=== PATIENT | male | born 1955 | race African-American/Black ===

== ENCOUNTER → 2020-11-07 | Outpatient (REF) | payer OTHER ==
[2020-11-07 21:56] LABS: APPEARANCE, URINE CLEAR (CLEAR); BACTERIA, URINE AUTO NEGATIVE (NEGATIVE); BILIRUBIN, URINE AUTO NEGATIVE (NEGATIVE); BLOOD, URINE BLOOD NEGATIVE (NEGATIVE); COLOR, URINE YELLOW (YELLOW); GLUCOSE, URINE (UA) AUTO 3+ mg/dL (NEGATIVE); KETONE, URINE AUTO NEGATIVE (NEGATIVE); LEUKOCYTE ESTERASE, URINE AUTO NEGATIVE (NEGATIVE); MUCUS, URINE SMALL (NEGATIVE); NITRITE, URINE AUTO NEGATIVE (NEGATIVE); PROTEIN, URINE AUTO NEGATIVE (NEGATIVE); RBC, URINE AUTO 1 /HPF (0-3); SQUAMOUS EPITHELIAL CELL UR AU 0 /HPF (0-6); WBC, URINE AUTO 0 /HPF (0-3)
== END ==
LOC: M LAB 21:30
PROVIDERS: ATTEND Physician Assistant Medical
DX: N39.0 Urinary tract infection, site not specified (principal)

== ENCOUNTER 2021-04-09 02:03 | Emergency (ER) | payer OTHER, MEDICAID ==
[~2021-04-09] VITALS: Ht 175.3 cm; Wt 66.2 kg
[2021-04-09] MEDS ORDERED: ASPI81CH33 PO (02:18)
[2021-04-09] MEDS ORDERED: PIOG1TAB37 PO (02:18)
[2021-04-09] MEDS ORDERED: LOSA50TA88 PO (02:18)
[2021-04-09] MEDS ORDERED: TRES1INJ2 SC (02:18)
[2021-04-09] MEDS ORDERED: OMEP-221 PO (02:18)
[2021-04-09] MEDS ORDERED: INSUH10VL SC (02:18)
[2021-04-09] MEDS ORDERED: GABA-283 PO (02:18)
[2021-04-09] MEDS ORDERED: ATOR1TAB21 PO (02:18)
[2021-04-09] MEDS ORDERED: methocarbamoL 750 MG TAB PO ONE (06:30)
[2021-04-09] MEDS ORDERED: KETOROLAC 60MG 2ML VIAL IM ONE (06:30)
--- NOTE | 2021-04-09 07:45 | REPVR ---
PROCEDURE INFORMATION: Exam: US Pelvis Limited, Transabdominal, Soft tissue Exam date and time: 04/09/2021 7:21 AM Age: 66 years old Clinical indication: Patient HX: Lt groin pain x 3 days; Additional info: Pain left groin ? hernia TECHNIQUE: Imaging protocol: Real-time transabdominal pelvic ultrasound with image documentation. Limited exam. Exam focused on the soft tissue. COMPARISON: No relevant prior studies available. FINDINGS: Soft tissues: Limited soft tissue ultrasound of the right and left inguinal regions were performed with no evidence of hernia pre and post Valsalva maneuver. No fluid collection seen to suggest an abscess. IMPRESSION: No sonographic evidence of right or left inguinal hernias. Electronically signed by: Andrade Martin On 04/09/2021 07:45:00 AM
--- NOTE | 2021-04-09 08:33 | REP ---
INDICATION: left groin/thigh pain COMPARISON: None. TECHNIQUE: Frontal view of the pelvis with neutral and frog lateral views of the left hip. FINDINGS: Osseous structures and joint spaces are intact and essentially age-appropriate. Hip joints appear symmetric on frontal pelvic radiograph. No acute fracture dislocation. No evidence for healed injury. No overt degenerative changes are appreciated. Surrounding soft tissues are unremarkable. IMPRESSION: Normal age-appropriate pelvis and left hip series. <Electronically signed by Nas Medina > 04/09/21 [id number]
[2021-04-09] MEDS ORDERED: PRED20TA PO (08:55)
[2021-04-09] MEDS ORDERED: METH-1165 PO (08:55)
[2021-04-09 09:17] VITALS: BP 176/88
== END 2021-04-09 09:18 | disposition home or self-care (01) ==
LOC: M ED 02:03
DX: M54.32 Sciatica, left side (principal); E11.9 Type 2 diabetes mellitus without complications; I10 Essential (primary) hypertension; K21.9 Gastro-esophageal reflux disease without esophagitis; F17.200 Nicotine dependence, unspecified, uncomplicated; Z79.899 Other long term (current) drug therapy; Z79.4 Long term (current) use of insulin
CPT/HCPCS: 73502; 76857; 96372; 99283; J1885

== ENCOUNTER → 2021-04-11 | Outpatient (CLI) | payer OTHER ==
[~2021-04-11] MED LIST: ASPI81CH33 PO; ATOR1TAB21 PO; DOXY1CAP62 PO; GABA-283 PO; INSUH10VL SC; LACT20EL PO; LOSA50TA88 PO; METH-1164 PO; METH-1165 PO; OMEP-221 PO; PIOG1TAB37 PO; PRED20TA PO; TIZA4TAB4 PO; TRES1INJ2 SC
[2021-04-11 09:37] LABS: BLOOD UREA NITROGEN 16 MG/DL (7-18); CALCIUM LEVEL 9.5 MG/DL (8.8-10.2); CARBON DIOXIDE LEVEL 30 MEQ/L (21-32); CHLORIDE LEVEL 101 MEQ/L (98-107); CHOLESTEROL LEVEL 152 MG/DL (<200); CHOLESTEROL RISK RATIO 1.876 (<5); CREATININE FOR GFR 0.94 MG/DL (0.70-1.30); GLOMERULAR FILTRATION RATE > 60.0 (>49); GLUCOSE, FASTING 272 MG/DL (70-100); HDL CHOLESTEROL 81 MG/DL (>40); LDL CHOLESTEROL 62 MG/DL (<100); NON-HDL-C 71 MG/DL; POTASSIUM SERUM 4.4 MEQ/L (3.5-5.1); SODIUM LEVEL 135 MEQ/L (136-145); TRIGLYCERIDES LEVEL 45 MG/DL (<150)
[2021-04-11 09:46] LABS: CREATININE, URINE 52.3 MG/DL; MALB URINE SIEMENS 61.2 MG/L
[2021-04-11 10:54] LABS: HEMOGLOBIN A1c 9.8 %
== END ==
LOC: M LAB 08:37
PROVIDERS: ATTEND Family Medicine
DX: E11.9 Type 2 diabetes mellitus without complications (principal)

== ENCOUNTER 2021-04-23 13:54 | Emergency (ER) | payer MEDICAID, OTHER ==
[~2021-04-23] VITALS: Ht 175.3 cm; Wt 66.3 kg
[~2021-04-23 13:54] MED LIST changes: -DOXY1CAP62 PO; -LACT20EL PO; -METH-1164 PO; -TIZA4TAB4 PO
[2021-04-23] MEDS ORDERED: DOXY1CAP62 PO (14:09)
[2021-04-23] MEDS ORDERED: TIZA4TAB4 PO (14:09)
[2021-04-23] MEDS ORDERED: NS 500 ML IV ONE (18:05)
[2021-04-23 18:20] LABS: BASO % 0.2 % (0.0-1.0); EOS # 0.1 10^3/uL (0.0-0.5); EOS % 1.1 % (0.0-3.0); HEMATOCRIT 44.5 % (42.0-52.0); HEMOGLOBIN 14.5 g/dl (13.5-17.5); LYMPH # 2.7 10^3/uL (1.5-5.0); LYMPH % 32.8 % (24.0-44.0); MEAN CORPUSCULAR HEMOGLOBIN 30.1 pg (27.0-33.0); MEAN CORPUSCULAR HGB CONC 32.6 g/dl (32.0-36.5); MEAN CORPUSCULAR VOLUME 92.5 fl (80.0-96.0); MONO # 0.6 10^3/uL (0.0-0.8); MONO % 7.6 % (2.0-8.0); NEUTROPHILS # 4.8 10^3/uL (1.5-8.5); NEUTROPHILS % 57.9 % (36.0-66.0); PLATELET COUNT, AUTOMATED 172 10^3/uL (150-450); RED BLOOD COUNT 4.81 10^6/uL (4.30-6.10); WHITE BLOOD COUNT 8.3 10^3/uL (4.0-10.0)
[2021-04-23 18:38] LABS: ERYTHROCYTE SEDIMENTATION RATE 11 mm/hr (0-20)
[2021-04-23] MEDS ORDERED: KETOROLAC 30 MG/ML 1ML VIAL IV ONE (18:45)
[2021-04-23 18:51] LABS: ALBUMIN 3.6 GM/DL (3.2-5.2); ALT/SGPT 27 U/L (12-78); BILIRUBIN,DIRECT 0.2 MG/DL (0.0-0.2); BILIRUBIN,TOTAL 0.5 MG/DL (0.2-1.0); C REACTIVE PROTEIN QUANTITATIV < 0.30 MG/DL (0.00-0.30); LIPASE 157 U/L (73-393); TOTAL PROTEIN 7.1 GM/DL (6.4-8.2)
[2021-04-23] MEDS ORDERED: ISOVUE-370 76% 100ML VIAL As Ordered ONE (19:11)
[2021-04-23] MEDS ORDERED: MORPHINE 4 MG/ML 1ML VIAL/SYRINGE (J2270) IV ONE (20:45)
--- NOTE | 2021-04-23 21:09 | REPVR ---
PROCEDURE INFORMATION: Exam: CT Abdomen And Pelvis With Contrast Exam date and time: 04/23/2021 7:37 PM Age: 66 years old Clinical indication: Abdominal pain; Localized; Left; Additional info: Severe ttp luq, llq TECHNIQUE: Imaging protocol: Computed tomography of the abdomen and pelvis with contrast. Radiation optimization: All CT scans at this facility use at least one of these dose optimization techniques: automated exposure control; mA and/or kV adjustment per patient size (includes targeted exams where dose is matched to clinical indication); or iterative reconstruction. Contrast material: ISOVUE 370; Contrast volume: 100 ml; Contrast route: INTRAVENOUS (IV); COMPARISON: CR Hip,AP,LAT to include Pelvis 04/09/2021 8:08 AM FINDINGS: Lungs: There is mild dependent atelectasis in both lower lobes. There are cystic changes in the right lower lobe. The lungs were not fully imaged. Heart: No cardiomegaly or pericardial effusion. Liver: The attenuation of the liver is more than 40 Hounsfield units lower in attenuation compared to the spleen, which is compatible with fatty liver infiltration. No liver lesion is identified. The contour of the liver is smooth. No hepatomegaly is noted. Gallbladder and bile ducts: No calcified gallstones are noted. No gallbladder wall thickening, pericholecystic fluid, or pericholecystic inflammatory changes are identified. No dilation of the bile ducts is noted. No calcified stones are seen in the common bile duct. Pancreas: Normal. No dilation of the main pancreatic duct is noted. Spleen: Normal. No splenomegaly is noted. Adrenal glands: There is a 1.5 cm nodule in the right adrenal gland. The left adrenal gland is normal. Kidneys and ureters: There are benign-appearing cysts in the left kidney measuring up to 14 mm, for which follow-up imaging is not necessary. No stones are noted in the kidneys or ureters. There is no hydronephrosis or hydroureter. There are no wedge-shaped areas of low attenuation in the kidneys to suggest pyelonephritis. There is no renal abscess or perinephric fluid collection. Stomach and bowel: There is thickening of the wall of the stomach, which may be secondary to its decompressed state versus gastritis. The small bowel is unremarkable. There is colonic diverticulosis without evidence for diverticulitis. There is no evidence for a bowel obstruction, colitis, pneumatosis intestinalis, intussusception, volvulus, or perforated viscus. There is a moderate amount of stool in the cecum, ascending colon, transverse colon, and descending colon. Appendix: Normal. There is no evidence for appendicitis. Intraperitoneal space: No free air. No ascites. No abscess. Retroperitoneal space: No fluid collection. No mass. Vasculature: The abdominal aorta is patent, normal in caliber, and there is no dissection. The iliac arteries, common femoral arteries, renal arteries, celiac artery, superior mesenteric artery, and inferior mesenteric artery are patent. The portal veins, splenic vein, superior mesenteric vein, inferior mesenteric vein, and renal veins are patent. Lymph nodes: No enlarged lymph nodes. Urinary bladder: The distended urinary bladder is normal in appearance. No stones or masses are seen in the bladder. Reproductive: The prostate gland is enlarged and measures 4 cm x 4.3 cm x 3.8 cm and the volume of the prostate gland measures 34.2 mL. The seminal vesicles are unremarkable. Bones/joints: There is a lumbosacral transitional vertebra, and there is broadening of the both transverse proceses of the lumbosacral transitional vertebra that will be designated as L5 above the last well-defined intervertebral disc, which are fused to both sides of the sacrum (Castellvi type IIIb lumbosacral transitional vertebra) and this stabilizes the level below the lumbosacral transitional vertebra and leads to the propensity for increased mobility and degenerative disc disease at the level above the lumbosacral transitional vertebra (Bertolotti's syndrome). T12 is labeled as the last vertebral body that bears ribs. There is a broad-based posterior protrusion, thickening of the ligamentum flavum, and mild hypertrophy of the facet joints at the L4-L5 level. Soft tissues: Unremarkable. No hernia. No soft tissue fluid collection. IMPRESSION: 1. Thickening of the wall of the stomach, which may be secondary to its decompressed state versus gastritis. 2. Colonic diverticulosis without evidence for diverticulitis. 3. Moderate amount of stool in the cecum, ascending colon, transverse colon, and descending colon. No bowel obstruction. 4. Fatty liver. 5. Enlarged prostate. 6. 1.5 cm right adrenal nodule. Consider further evaluation with an adrenal protocol CT abdomen without and with intravenous contrast using 70-second and 15-minute scan delays after the administration of the intravenous contrast in 12 months. (Acevedo-Anderson W, ACR White Paper, 2017) COMMENTS: Consistent with the [employer]'s Incidental Findings Committee white paper (J Am Berenice Radiol 2018): Any incidental renal lesion less than 1 cm or classified as too small to characterize, or any incidental cystic renal lesion characterized as simple-appearing, is likely benign. No follow-up imaging is recommended for these lesions per consensus recommendations based on imaging criteria. Electronically signed by: Cj Hussein On 04/23/2021 21:08:37 PM
[2021-04-23 21:49] LABS: APPEARANCE, URINE CLEAR (CLEAR); BACTERIA, URINE AUTO NEGATIVE (NEGATIVE); BILIRUBIN, URINE AUTO NEGATIVE (NEGATIVE); BLOOD, URINE BLOOD NEGATIVE (NEGATIVE); COLOR, URINE STRAW (YELLOW); GLUCOSE, URINE (UA) AUTO 3+ mg/dL (NEGATIVE); KETONE, URINE AUTO NEGATIVE (NEGATIVE); LEUKOCYTE ESTERASE, URINE AUTO NEGATIVE (NEGATIVE); NITRITE, URINE AUTO NEGATIVE (NEGATIVE); PROTEIN, URINE AUTO NEGATIVE (NEGATIVE); RBC, URINE AUTO 2 /HPF (0-3); SPECIFIC GRAVITY URINE AUTO 1.028 (1.002-1.035); SQUAMOUS EPITHELIAL CELL UR AU 0 /HPF (0-6); UROBILINOGEN, URINE AUTO 0.2 mg/dL (0.0-2.0); WBC, URINE AUTO 0 /HPF (0-3)
[2021-04-23 22:05] VITALS: BP 187/87
[2021-04-23] MEDS ORDERED: LACT20EL PO (22:05)
[2021-04-23] MEDS ORDERED: LACTULOSE 20 GM/30 ML SYRUP UD PO ONE (22:15)
--- NOTE | 2021-04-27 13:03 | ED PDOC ---
Post-Departure Follow-Up radiology report faxed to Vicki Toth MD Apr 27, 2021 13:03
== END 2021-04-23 22:23 | disposition home or self-care (01) ==
LOC: M ED 13:54
DX: K59.00 Constipation, unspecified (principal); K21.9 Gastro-esophageal reflux disease without esophagitis; K76.0 Fatty (change of) liver, not elsewhere classified; M79.605 Pain in left leg; E11.9 Type 2 diabetes mellitus without complications; N40.0 Benign prostatic hyperplasia without lower urinary tract symptoms; I10 Essential (primary) hypertension; F17.200 Nicotine dependence, unspecified, uncomplicated
CPT/HCPCS: 74177; 80047; 80076; 81001; 82010; 83605; 83690; 85025; 85652; 86140; 96361; 96374; 96375; 99284; J1885; J2270; Q9967

== ENCOUNTER 2021-05-11 13:41 | Emergency (ER) | payer OTHER ==
[~2021-05-11] VITALS: Ht 175.3 cm; Wt 64.1 kg
[~2021-05-11 13:41] MED LIST changes: +DOXY1CAP62 PO; +LACT20EL PO; +TIZA4TAB4 PO
[2021-05-11] MEDS ORDERED: ACETAMINOPHEN 325 MG TAB PO ONE (18:05)
[2021-05-11] MEDS ORDERED: methocarbamoL 500 MG TAB PO ONE (18:05)
--- NOTE | 2021-05-11 19:13 | REPVR ---
PROCEDURE INFORMATION: Exam: CT Left Lower Extremity Without Contrast, Hip Exam date and time: 05/11/2021 6:02 PM Age: 66 years old Clinical indication: Pain; Hip; Left; Additional info: Pain extended period of time failed conservative TECHNIQUE: Imaging protocol: CT of the Left lower extremity without contrast was performed. Exam focused on the hip. Radiation optimization: All CT scans at this facility use at least one of these dose optimization techniques: automated exposure control; mA and/or kV adjustment per patient size (includes targeted exams where dose is matched to clinical indication); or iterative reconstruction. COMPARISON: CR Hip,AP,LAT to include Pelvis 04/09/2021 8:08 AM FINDINGS: Bones/joints: Minimal narrowing of the medial compartment of the left hip joint. Mild irregularity noted of the articular surface of the femoral head medially. No fracture or dislocation. No findings to suggest osteonecrosis. Soft tissues: Normal. Bowel: Scattered colonic diverticula. IMPRESSION: 1. Mild osteoarthritis of the left hip Electronically signed by: Kalpana Robin On 05/11/2021 19:13:31 PM
[2021-05-11] MEDS ORDERED: METH-1164 PO (19:17)
[2021-05-11 19:30] VITALS: BP 169/84
== END 2021-05-11 19:33 | disposition home or self-care (01) ==
LOC: M ED 13:41
DX: M16.12 Unilateral primary osteoarthritis, left hip (principal); N40.0 Benign prostatic hyperplasia without lower urinary tract symptoms; E11.9 Type 2 diabetes mellitus without complications; I10 Essential (primary) hypertension; K21.9 Gastro-esophageal reflux disease without esophagitis; F17.200 Nicotine dependence, unspecified, uncomplicated; Z79.4 Long term (current) use of insulin; Z79.899 Other long term (current) drug therapy

== ENCOUNTER → 2021-07-19 | Outpatient (CLI) | payer OTHER, MEDICAID ==
[~2021-07-19] MED LIST changes: +METH-1164 PO
[2021-07-19 13:41] LABS: BLOOD UREA NITROGEN 18 MG/DL (7-18); CALCIUM LEVEL 9.5 MG/DL (8.8-10.2); CARBON DIOXIDE LEVEL 33 MEQ/L (21-32); CHLORIDE LEVEL 104 MEQ/L (98-107); CREATININE FOR GFR 0.96 MG/DL (0.70-1.30); GLOMERULAR FILTRATION RATE > 60.0 (>49); GLUCOSE, FASTING 231 MG/DL (70-100); POTASSIUM SERUM 4.1 MEQ/L (3.5-5.1); SODIUM LEVEL 139 MEQ/L (136-145)
[2021-07-19 13:47] LABS: HEMOGLOBIN A1c 10.3 %
[2021-07-19 13:54] LABS: CREATININE, URINE 68.4 MG/DL; MALB URINE SIEMENS 13.2 MG/L; MAU/CREAT RATIO 19.2 MCG/MG (0.0-30.0)
== END ==
LOC: M LAB 11:37
PROVIDERS: ATTEND Family Medicine
DX: E11.9 Type 2 diabetes mellitus without complications (principal)

== ENCOUNTER → 2021-10-17 | Outpatient (CLI) | payer MEDICAID, OTHER ==
[~2021-10-17] MED LIST changes: +DOXY-443 PO; -DOXY1CAP62 PO
== END ==
LOC: M LABSMTC 11:29
PROVIDERS: ATTEND Pediatrics
DX: Z20.822 Contact with and (suspected) exposure to COVID-19 (principal)
CPT/HCPCS: C9803; U0003

== ENCOUNTER → 2021-12-07 | Outpatient (CLI) | payer OTHER ==
[~2021-12-07] MED LIST changes: +LOSA50TA28 PO; -LOSA50TA88 PO; -OMEP-221 PO; +OMEP40CA5 PO; +TIZA10TA PO; -TIZA4TAB4 PO
[2021-12-07 12:19] LABS: BLOOD UREA NITROGEN 13 MG/DL (7-18); CALCIUM LEVEL 9.2 MG/DL (8.8-10.2); CARBON DIOXIDE LEVEL 30 MEQ/L (21-32); CHLORIDE LEVEL 102 MEQ/L (98-107); CREATININE FOR GFR 0.88 MG/DL (0.70-1.30); GLOMERULAR FILTRATION RATE > 60.0 (>49); GLUCOSE, FASTING 193 MG/DL (70-100); POTASSIUM SERUM 4.4 MEQ/L (3.5-5.1); SODIUM LEVEL 137 MEQ/L (136-145)
[2021-12-07 13:09] LABS: HEMOGLOBIN A1c 8.9 %
== END ==
LOC: M LAB 10:15
PROVIDERS: ATTEND Family Medicine
DX: E11.9 Type 2 diabetes mellitus without complications (principal)

== ENCOUNTER → 2022-06-20 | Outpatient (REF) | payer OTHER ==
[2022-06-20 17:22] LABS: HEMOGLOBIN A1c 8.3 %
[2022-06-20 17:31] LABS: BLOOD UREA NITROGEN 9 MG/DL (7-18); CALCIUM LEVEL 9.2 MG/DL (8.8-10.2); CARBON DIOXIDE LEVEL 30 MEQ/L (21-32); CHLORIDE LEVEL 106 MEQ/L (98-107); CHOLESTEROL LEVEL 104 MG/DL (<200); CHOLESTEROL RISK RATIO 1.793 (<5); CREATININE FOR GFR 1.09 MG/DL (0.70-1.30); GLOMERULAR FILTRATION RATE > 60.0 (>49); GLUCOSE, FASTING 138 MG/DL (70-100); HDL CHOLESTEROL 58 MG/DL (>40); LDL CHOLESTEROL 31 MG/DL (<100); NON-HDL-C 46 MG/DL; POTASSIUM SERUM 3.8 MEQ/L (3.5-5.1); SODIUM LEVEL 139 MEQ/L (136-145); TRIGLYCERIDES LEVEL 74 MG/DL (<150)
== END ==
LOC: M WUC 16:10
PROVIDERS: ATTEND Family Medicine
DX: E11.9 Type 2 diabetes mellitus without complications (principal); E78.5 Hyperlipidemia, unspecified

== ENCOUNTER → 2022-09-16 | Outpatient (CLI) | payer OTHER | LOC: M RAD 11:50 | PROVIDERS: ATTEND Family Medicine | DX: Z12.2 Encounter for screening for malignant neoplasm of respiratory organs (principal) ==

== ENCOUNTER → 2022-11-12 | Outpatient (CLI) | payer OTHER ==
[2022-11-12 15:29] LABS: BLOOD UREA NITROGEN 22 MG/DL (9-23); CARBON DIOXIDE LEVEL 31 MMOL/L (20-31); CHLORIDE LEVEL 103 MMOL/L (98-107); CREATININE FOR GFR 1.04 MG/DL (0.70-1.30); GLOMERULAR FILTRATION RATE > 60.0 (>49); GLUCOSE, FASTING 98 MG/DL (74-106); POTASSIUM SERUM 4.4 MMOL/L (3.5-5.1); SODIUM LEVEL 139 MMOL/L (136-145)
[2022-11-12 15:49] LABS: CREATININE, URINE 143.9 MG/DL; CREATININE,RANDOM URINE 143.9 MG/DL; MAU/CREAT RATIO 20.8 MCG/MG (0.0-30.0)
[2022-11-12 15:59] LABS: HEMOGLOBIN A1c 7.2 % (4.0-6.0)
== END ==
LOC: M PLALAB 11:59
PROVIDERS: ATTEND Family Medicine
DX: E11.9 Type 2 diabetes mellitus without complications (principal); Z79.4 Long term (current) use of insulin

== ENCOUNTER 2022-12-15 20:10 | Emergency (ER) | payer OTHER ==
[~2022-12-15] VITALS: Ht 175.3 cm; Wt 67.7 kg
[2022-12-15] MEDS ORDERED: MORPHINE 4 MG/ML 1ML VIAL IV ONE (20:20)
[2022-12-15] MEDS ORDERED: TENECTEPLASE 50 MG KIT (TNKase) IV ONE (20:25)
[2022-12-15 20:27] LABS: BASO % 0.4 % (0.0-1.0); EOS # 0.1 10^3/uL (0.0-0.5); EOS % 1.2 % (0.0-3.0); HEMATOCRIT 41.4 % (42.0-52.0); HEMOGLOBIN 13.5 g/dl (13.5-17.5); LYMPH # 4.1 10^3/uL (1.5-5.0); LYMPH % 48.5 % (24.0-44.0); MEAN CORPUSCULAR HEMOGLOBIN 29.6 pg (27.0-33.0); MEAN CORPUSCULAR HGB CONC 32.6 g/dl (32.0-36.5); MEAN CORPUSCULAR VOLUME 90.8 fl (80.0-96.0); MONO # 0.7 10^3/uL (0.0-0.8); MONO % 8.6 % (2.0-8.0); NEUTROPHILS # 3.5 10^3/uL (1.5-8.5); NEUTROPHILS % 40.8 % (36.0-66.0); PLATELET COUNT, AUTOMATED 190 10^3/uL (150-450); RED BLOOD COUNT 4.56 10^6/uL (4.30-6.10); WHITE BLOOD COUNT 8.5 10^3/uL (4.0-10.0)
[2022-12-15 20:37] LABS: INR 0.95; PROTHROMBIN TIME 12.9 SECONDS (12.5-14.5)
[2022-12-15 20:45] VITALS: BP 114/62
[2022-12-15] MEDS ORDERED: HEPARIN DRIP 25,000 UNITS in IV 1 EA IV SCH (20:45)
[2022-12-15 20:50] LABS: CPK CREATINE PHOSPHOKINASE 73 U/L (46-171)
[2022-12-15] MEDS ORDERED: ONDANSETRON 4MG 2ML VIAL IV ONE (20:50)
[2022-12-15 20:51] LABS: CK-MB VALUE MASS < 1.0 NG/ML (<3.6); MB/CK RELATIVE INDEX 1.36 (< OR =4)
[2022-12-15 20:55] LABS: THYROID STIMULATING HORMONE 1.721 uIU/ML (0.55-4.78)
[2022-12-15 21:05] LABS: RSV AMPLIFICATION NEGATIVE (NEGATIVE)
[2022-12-15 21:14] LABS: ALBUMIN 3.3 G/DL (3.2-5.2); ALKALINE PHOSPHATASE 85 U/L (46-116); ALT/SGPT 18 U/L (7.0-40); AST/SGOT 13 U/L (<34); BILIRUBIN,DIRECT 0.2 MG/DL (<0.4); BILIRUBIN,TOTAL 0.4 MG/DL (0.3-1.2); TOTAL PROTEIN 6.2 G/DL (5.7-8.2)
[2022-12-15 22:00] LABS: MAGNESIUM LEVEL 1.8 MG/DL (1.8-2.4)
== END 2022-12-15 20:58 | disposition short-term general hospital (02) ==
LOC: EDBD 20:10 → M ED 20:10
DX: I21.4 Non-ST elevation (NSTEMI) myocardial infarction (principal); I42.2 Other hypertrophic cardiomyopathy; E11.9 Type 2 diabetes mellitus without complications; I10 Essential (primary) hypertension; E78.5 Hyperlipidemia, unspecified; Z79.4 Long term (current) use of insulin; Z79.84 Long term (current) use of oral hypoglycemic drugs; Z79.82 Long term (current) use of aspirin; Z79.02 Long term (current) use of antithrombotics/antiplatelets; Z79.52 Long term (current) use of systemic steroids; Z79.811 Long term (current) use of aromatase inhibitors; Z79.899 Other long term (current) drug therapy
CPT/HCPCS: 71045; 80047; 80076; 82550; 82553; 83735; 83880; 84443; 84484; 85025; 85610; 85730; 87631; 93005; 96374; 96375; 99284; J2270; J2405; J3101

== ENCOUNTER 2023-04-16 15:57 | Emergency (ER) | payer OTHER ==
[~2023-04-16] VITALS: Ht 175.3 cm; Wt 67.3 kg
[2023-04-16 16:07] VITALS: BP 157/76; TEMP 98.8; O2SAT 98
[2023-04-16] MEDS ORDERED: CLOP75TA2 (16:10)
[2023-04-16] MEDS ORDERED: LIDOCAINE 5% (LIDODERM) PATCH TD ONE (19:10)
[2023-04-16] MEDS ORDERED: diazePAM 5MG TABLET PO ONE (19:10)
[2023-04-16] MEDS ORDERED: ACETAMINOPHEN 500 MG TAB PO ONE (19:10)
[2023-04-16] MEDS ORDERED: METH-1164 PO (20:33)
== END 2023-04-16 20:43 | disposition home or self-care (01) ==
LOC: M ED 15:57 → EDBD 15:57 → M ED 20:43
DX: S39.012A Strain of muscle, fascia and tendon of lower back, initial encounter (principal); I25.2 Old myocardial infarction; E11.9 Type 2 diabetes mellitus without complications; I10 Essential (primary) hypertension; Z79.4 Long term (current) use of insulin; Z79.82 Long term (current) use of aspirin; Z79.02 Long term (current) use of antithrombotics/antiplatelets; Z79.811 Long term (current) use of aromatase inhibitors; Z79.899 Other long term (current) drug therapy

== ENCOUNTER → 2023-08-20 | Outpatient (CLI) | payer OTHER, MEDICAID ==
[~2023-08-20] MED LIST changes: +CLOP75TA2; -GABA-283 PO; +GABA-284 PO
== END ==
LOC: M SOG 08:02
PROVIDERS: ATTEND Orthopaedic Surgery
DX: M25.561 Pain in right knee (principal)

== ENCOUNTER → 2023-09-04 | Outpatient (CLI) | payer OTHER, MEDICAID | LOC: M PLAIMG 06:40 | PROVIDERS: ATTEND Orthopaedic Surgery | DX: M23.221 Derangement of posterior horn of medial meniscus due to old tear or injury, right knee (principal); M25.561 Pain in right knee ==

== ENCOUNTER 2023-11-03 10:42 | Emergency (ER) | payer OTHER, MEDICAID ==
[~2023-11-03] VITALS: Ht 175.3 cm; Wt 69.4 kg
[2023-11-03] MEDS ORDERED: NS 500 ML IV ONE (10:50)
[2023-11-03 11:18] LABS: BASO % 0.3 % (0.0-1.0); EOS # 0.1 10^3/uL (0.0-0.5); EOS % 1.1 % (0.0-3.0); HEMOGLOBIN 14.8 g/dl (13.5-17.5); LYMPH # 2.6 10^3/uL (1.5-5.0); LYMPH % 35.5 % (24.0-44.0); MEAN CORPUSCULAR HEMOGLOBIN 29.6 pg (27.0-33.0); MEAN CORPUSCULAR HGB CONC 32.2 g/dl (32.0-36.5); MONO # 0.5 10^3/uL (0.0-0.8); MONO % 7.2 % (2.0-8.0); NEUTROPHILS # 4.1 10^3/uL (1.5-8.5); NEUTROPHILS % 55.6 % (36.0-66.0); PLATELET COUNT, AUTOMATED 197 10^3/uL (150-450); WHITE BLOOD COUNT 7.4 10^3/uL (4.0-10.0)
[2023-11-03 11:31] LABS: INR 1.05; PROTHROMBIN TIME 13.4 SECONDS (12.5-14.5)
[2023-11-03 11:40] LABS: LIPASE 141 U/L (12-53)
[2023-11-03 11:42] LABS: CPK CREATINE PHOSPHOKINASE 93 U/L (46-171)
[2023-11-03 11:43] LABS: ALKALINE PHOSPHATASE 123 U/L (46-116); ALT/SGPT 27 U/L (7.0-40); AST/SGOT 14 U/L (<34); BILIRUBIN,DIRECT 0.2 MG/DL (<0.4); BILIRUBIN,TOTAL 0.6 MG/DL (0.3-1.2); BLOOD UREA NITROGEN 16 MG/DL (9-23); CALCIUM LEVEL 9.6 MG/DL (8.3-10.6); CARBON DIOXIDE LEVEL 32 MMOL/L (20-31); CHLORIDE LEVEL 107 MMOL/L (98-107); CK-MB VALUE MASS < 1.0 NG/ML (<3.6); CREATININE FOR GFR 0.84 MG/DL (0.70-1.30); GLOMERULAR FILTRATION RATE > 60.0 (>49); GLUCOSE, FASTING 173 MG/DL (74-106); MB/CK RELATIVE INDEX 1.07 (< OR =4); POTASSIUM SERUM 4.3 MMOL/L (3.5-5.1); SODIUM LEVEL 142 MMOL/L (136-145); TOTAL PROTEIN 7.5 G/DL (5.7-8.2)
[2023-11-03 11:44] LABS: FREE T4 1.02 NG/DL (0.89-1.76)
[2023-11-03 11:49] LABS: RSV AMPLIFICATION NEGATIVE (NEGATIVE)
[2023-11-03] MEDS ORDERED: ISOVUE-370 76% 100ML VIAL As Ordered ONE (11:51)
[2023-11-03 12:32] LABS: CK-MB VALUE MASS < 1.0 NG/ML (<3.6)
[2023-11-03 12:33] LABS: CPK CREATINE PHOSPHOKINASE 76 U/L (46-171); MB/CK RELATIVE INDEX 1.31 (< OR =4)
[2023-11-03 14:08] VITALS: BP 171/96; TEMP 97; O2SAT 100
== END 2023-11-03 14:13 | disposition home or self-care (01) ==
LOC: M ED 10:42
DX: R07.9 Chest pain, unspecified (principal); I49.1 Atrial premature depolarization; E11.9 Type 2 diabetes mellitus without complications; I10 Essential (primary) hypertension; E78.5 Hyperlipidemia, unspecified; I25.2 Old myocardial infarction; Z86.79 Personal history of other diseases of the circulatory system; Z87.891 Personal history of nicotine dependence; Z88.8 Allergy status to other drugs, medicaments and biological substances; Z79.82 Long term (current) use of aspirin; Z79.02 Long term (current) use of antithrombotics/antiplatelets; Z79.899 Other long term (current) drug therapy
CPT/HCPCS: 71045; 71275; 74177; 80047; 80048; 80076; 82550; 82553; 83690; 83880; 84439; 84443; 84484; 85025; 85610; 85730; 87631; 93005; 93041; 94760; 96360; 99285; G0463; Q9967

== ENCOUNTER → 2023-11-24 | Outpatient (REF) | payer OTHER, MEDICAID ==
[2023-11-24 18:10] LABS: APPEARANCE, URINE CLEAR (CLEAR); BACTERIA, URINE AUTO NEGATIVE (NEGATIVE); BILIRUBIN, URINE AUTO NEGATIVE (NEGATIVE); BLOOD, URINE BLOOD NEGATIVE (NEGATIVE); COLOR, URINE YELLOW (YELLOW); GLUCOSE, URINE (UA) AUTO 3+ mg/dL (NEGATIVE); KETONE, URINE AUTO TRACE mg/dL (NEGATIVE); LEUKOCYTE ESTERASE, URINE AUTO NEGATIVE (NEGATIVE); NITRITE, URINE AUTO NEGATIVE (NEGATIVE); PROTEIN, URINE AUTO NEGATIVE (NEGATIVE); RBC, URINE AUTO 1 /HPF (0-3); SPECIFIC GRAVITY URINE AUTO 1.021 (1.002-1.035); SQUAMOUS EPITHELIAL CELL UR AU 0 /HPF (0-6); WBC, URINE AUTO 0 /HPF (0-3)
== END ==
LOC: M SMT 17:33
PROVIDERS: ATTEND Specialist
DX: R39.15 Urgency of urination (principal)

== ENCOUNTER → 2024-01-22 | Outpatient (CLI) | payer OTHER, MEDICAID ==
[~2024-01-22] MED LIST changes: +DULA3PEN SQ; +JANU100T PO
== END ==
LOC: M SOG 07:57
PROVIDERS: ATTEND Physician Assistant
DX: M25.561 Pain in right knee (principal)

== ENCOUNTER 2024-01-23 12:13 | Day surgery (SDC) | payer OTHER, MEDICAID ==
[~2024-01-23] VITALS: Ht 175.3 cm; Wt 66.2 kg
[2024-01-23] MEDS: NS 1,000 ML IV ONE (12:59)
[2024-01-23] MEDS ORDERED: propofoL 200 MG/20 ML VIAL As Ordered ONE (14:32)
[2024-01-23 15:30] VITALS: TEMP 97
[2024-01-23 15:45] VITALS: BP 114/63; O2SAT 94
== END 2024-01-23 16:09 | disposition home or self-care (01) ==
LOC: M OPP 12:13
PROVIDERS: ATTEND Internal Medicine Gastroenterology
DX: Z86.010 Personal history of colon polyps (principal); D12.2 Benign neoplasm of ascending colon; D12.3 Benign neoplasm of transverse colon; D12.4 Benign neoplasm of descending colon; D12.7 Benign neoplasm of rectosigmoid junction; K64.8 Other hemorrhoids; K64.4 Residual hemorrhoidal skin tags; K57.30 Diverticulosis of large intestine without perforation or abscess without bleeding; E11.9 Type 2 diabetes mellitus without complications; Z86.74 Personal history of sudden cardiac arrest; Z79.02 Long term (current) use of antithrombotics/antiplatelets; Z79.4 Long term (current) use of insulin; Z79.82 Long term (current) use of aspirin; Z79.899 Other long term (current) drug therapy; Z88.8 Allergy status to other drugs, medicaments and biological substances

== ENCOUNTER → 2024-02-18 | Outpatient (REF) | payer OTHER, MEDICAID ==
[~2024-02-18] MED LIST changes: +DOXY-323 PO; -DOXY-443 PO
[2024-02-18 16:15] LABS: HEMOGLOBIN A1c 8.1 % (4.0-6.0)
[2024-02-18 16:18] LABS: ALBUMIN 3.6 G/DL (3.2-5.2); ALKALINE PHOSPHATASE 127 U/L (46-116); ALT/SGPT 33 U/L (7.0-40); AST/SGOT 15 U/L (<34); BILIRUBIN,TOTAL 0.6 MG/DL (0.3-1.2); BLOOD UREA NITROGEN 14 MG/DL (9-23); CALCIUM LEVEL 9.4 MG/DL (8.3-10.6); CARBON DIOXIDE LEVEL 32 MMOL/L (20-31); CHLORIDE LEVEL 103 MMOL/L (98-107); CREATININE FOR GFR 0.94 MG/DL (0.70-1.30); GLOMERULAR FILTRATION RATE > 60.0 (>49); GLUCOSE, FASTING 116 MG/DL (74-106); POTASSIUM SERUM 4.2 MMOL/L (3.5-5.1); SODIUM LEVEL 139 MMOL/L (136-145); TOTAL PROTEIN 6.9 G/DL (5.7-8.2)
[2024-02-18 16:20] LABS: CREATININE, URINE 139.7 MG/DL
[2024-02-18 16:21] LABS: MAU/CREAT RATIO 24.3 MCG/MG (0.0-30.0)
== END ==
LOC: M LABWUC 14:28
PROVIDERS: ATTEND Family Medicine
DX: E11.9 Type 2 diabetes mellitus without complications (principal)

== ENCOUNTER → 2024-08-25 | Outpatient (REF) | payer OTHER, MEDICAID ==
[~2024-08-25] MED LIST changes: -DOXY-323 PO; +DOXY-441 PO
== END ==
LOC: M SFHCLERA 13:43
PROVIDERS: ATTEND Family Medicine
DX: E11.9 Type 2 diabetes mellitus without complications (principal); E78.5 Hyperlipidemia, unspecified; N40.0 Benign prostatic hyperplasia without lower urinary tract symptoms

== ENCOUNTER → 2024-08-26 | Outpatient (REF) | payer OTHER, MEDICAID ==
[2024-08-26 12:09] LABS: ALBUMIN 3.6 G/DL (3.2-5.2); ALKALINE PHOSPHATASE 114 U/L (40-129); ALT/SGPT 25 U/L (7.0-40); AST/SGOT 26 U/L (<34); BILIRUBIN,TOTAL 0.8 MG/DL (0.3-1.2); BLOOD UREA NITROGEN 16 MG/DL (9-23); CALCIUM LEVEL 9.7 MG/DL (8.3-10.6); CARBON DIOXIDE LEVEL 29 MMOL/L (20-31); CHLORIDE LEVEL 109 MMOL/L (98-107); CHOLESTEROL LEVEL 99 MG/DL (<200); CHOLESTEROL RISK RATIO 2.21 (<5); CREATININE FOR GFR 0.93 MG/DL (0.70-1.30); GLOMERULAR FILTRATION RATE > 60.0 (>49); GLUCOSE, FASTING 70 MG/DL (74-106); HDL CHOLESTEROL 44.6 MG/DL (>40); LDL CHOLESTEROL 44.8 MG/DL (<100); NON-HDL-C 54.4 MG/DL; POTASSIUM SERUM 4.2 MMOL/L (3.5-5.1); PSA SCREENING 0.47 NG/ML (< 4.00); SODIUM LEVEL 142 MMOL/L (136-145); TOTAL PROTEIN 6.9 G/DL (5.7-8.2); TRIGLYCERIDES LEVEL 48 MG/DL (<150)
[2024-08-26 12:44] LABS: HEMOGLOBIN A1c 7.7 % (4.0-6.0)
== END ==
LOC: M SFHCLERA 07:52
PROVIDERS: ATTEND Family Medicine
DX: E11.9 Type 2 diabetes mellitus without complications (principal); E78.5 Hyperlipidemia, unspecified; N40.0 Benign prostatic hyperplasia without lower urinary tract symptoms; Z12.5 Encounter for screening for malignant neoplasm of prostate
CPT/HCPCS: 80053; 80061; 83036; G0103